=== PATIENT | male | born 1975 | race Caucasian/White ===

== ENCOUNTER → 2024-06-10 14:32 | Outpatient (REF) | payer OTHER, SELFPAY | LOC: HWRAD 14:32 | PROVIDERS: ATTENDING PHYSICIAN Family Medicine; FAMILY PHYSICIAN Family Medicine | DX: R36.1 Hematospermia (principal) | CPT/HCPCS: 76770 ==

== ENCOUNTER → 2025-03-07 14:03 | Outpatient (REF) | payer OTHER, SELFPAY | LOC: RAD 14:03 | PROVIDERS: ATTENDING PHYSICIAN Family Medicine; FAMILY PHYSICIAN Family Medicine | DX: M54.2 Cervicalgia (principal) | CPT/HCPCS: 72050 ==